=== PATIENT | female | born 1960 | race Caucasian/White ===

== ENCOUNTER 2023-08-24 06:57 | Inpatient (IN) | payer SELFPAY ==
[~2023-08-24] VITALS: Ht 172.7 cm; Wt 98.0 kg
[2023-08-24] MEDS ORDERED: adenosine 3mg/ml 2ml vial IV ONE ×2 (07:20)
[2023-08-24 07:44] LABS: BASOPHILS # (AUTO) 0.1 X10'3 (0-0.2); BASOPHILS % (AUTO) 0.9 % (0-1); EOSINOPHILS # (AUTO) 0.2 X10'3 (0-0.9); EOSINOPHILS % (AUTO) 2.1 % (0-6); HEMATOCRIT 41.4 % (35.0-45.0); HEMOGLOBIN 13.3 g/dl (12.0-16.0); LYMPHOCYTES # (AUTO) 2.1 X10'3 (1.1-4.8); LYMPHOCYTES % (AUTO) 18.6 % (21-51); MEAN CORPUSCULAR HEMOGLOBIN 28.6 PG (27.0-31.0); MEAN CORPUSCULAR HGB CONC 32.3 g/dL (33.0-36.5); MEAN CORPUSCULAR VOLUME 88.6 FL (78-98); MEAN PLATELET VOLUME 9.2 FL (7.4-10.4); MONOCYTES # (AUTO) 0.9 X10'3 (0-0.9); MONOCYTES % (AUTO) 7.8 % (2-12); NEUTROPHILS # (AUTO) 8.1 X10'3 (1.8-7.7); NEUTROPHILS % (AUTO) 70.6 % (42-75); PLATELET COUNT 370 X10'3 (140-440); RED BLOOD COUNT 4.67 X10'6 (4.20-5.60); RED CELL DISTRIBUTION WIDTH 15.3 % (11.5-14.5); WHITE BLOOD COUNT 11.5 X10'3 (4.5-11.0)
[2023-08-24 07:58] LABS: ALANINE AMINOTRANSFERASE 30 U/L (12-78); ALBUMIN 3.2 G/DL (3.4-5.0); ALBUMIN/GLOBULIN RATIO 0.9 (1.1-1.5); ALKALINE PHOSPHATASE 80 IU/L (46-116); ANION GAP 14 (8-16); ASPARTATE AMINO TRANSFERASE 16 U/L (10-37); BILIRUBIN,TOTAL 0.5 MG/DL (0.1-1.0); BLOOD UREA NITROGEN 16 MG/DL (7-18); BUN/CREATININE RATIO 11.9 (10.0-20.0); CALCIUM 9.3 MG/DL (8.5-10.1); CHLORIDE 107 MMOL/L (99-107); CREATININE 1.34 MG/DL (0.40-0.90); POTASSIUM 3.4 MMOL/L (3.5-5.1); SODIUM 144 MMOL/L (135-145); TOTAL CARBON DIOXIDE 23.3 MMOL/L (24-32); TOTAL PROTEIN 6.9 G/DL (6.4-8.2); eCRCL 44 ML/MIN; eGFR 40 ML/MIN
[2023-08-24 08:06] LABS: MAGNESIUM 1.7 MG/DL (1.5-2.4); PRO BRAIN NATRIURETIC PEPTIDE 582 PG/ML (0-125)
[2023-08-24] MEDS ORDERED: normal saline 1000ml 1,000 ML IV ONE (08:10)
[2023-08-24] MEDS ORDERED: ondansetron/PF 4mg/2ml inj IV ONE ×2 (08:10→09:45)
[2023-08-24] MEDS ORDERED: famotidine/PF 10 mg/ml inj IV ONE (08:10)
[2023-08-24 09:02] LABS: FREE T4 (FREE THYROXINE) 1.35 NG/DL (0.73-1.40); THYROID STIMULATING HORMONE 3.96 ulU/ml (0.34-4.50)
[2023-08-24 09:06] LABS: GLUCOSE 97 MG/DL (70-104)
[2023-08-24] MEDS ORDERED: magnesium Cl slow-release 64mg tablet PO PRN (13:25)
[2023-08-24] MEDS ORDERED: bisacodyl 10mg suppository rectal RC PRN (13:25)
[2023-08-24] MEDS ORDERED: magnesium 2GM in 50ml NS 50 ML IV PRN (13:25)
[2023-08-24] MEDS ORDERED: mag hydrox/Alum hydrox/simeth 30ml oral suspension PO PRN (13:25)
[2023-08-24] MEDS ORDERED: heparin 10,000 units/1 ML INJ IV PRN (13:25)
[2023-08-24] MEDS ORDERED: acetaminophen 325mg tablet PO PRN ×2 (13:25)
[2023-08-24] MEDS ORDERED: potassium Cl 20 mEq SR tablet PO PRN (13:25)
[2023-08-24] MEDS ORDERED: heparin 10,000 units/1 ML INJ IV ONE (13:25)
[2023-08-24] MEDS ORDERED: heparin 25,000 UNIT/250ml bag 250 ML IV PRN (13:25)
[2023-08-24] MEDS ORDERED: PERFLUTREN PROTEIN-A MICROSPHR (Optison) 0.22 MG/ML 3ML VIAL IV ONE (13:25)
[2023-08-24] MEDS ORDERED: magnesium 4gm in 100ml NS 100 ML IV PRN (13:25)
[2023-08-24] MEDS ORDERED: diphenhydrAMINE 25mg capsule PO PRN (13:25)
[2023-08-24] MEDS ORDERED: ondansetron/PF 4mg/2ml inj IV PRN (13:25)
[2023-08-24] MEDS ORDERED: magnesium hydroxide 30ml (MOM) UD suspension PO PRN (13:25)
[2023-08-24] MEDS ORDERED: acetaminophen 650mg rectal suppository RC PRN (13:25)
[2023-08-24] MEDS ORDERED: potassium Cl 40MEQ/1/2NS 520ml 520 ML IV PRN (13:25)
[2023-08-24 13:47] LABS: BASOPHILS # (AUTO) 0.1 X10'3 (0-0.2); BASOPHILS % (AUTO) 0.6 % (0-1); EOSINOPHILS # (AUTO) 0.1 X10'3 (0-0.9); EOSINOPHILS % (AUTO) 0.6 % (0-6); HEMATOCRIT 40.7 % (35.0-45.0); HEMOGLOBIN 13.4 g/dl (12.0-16.0); LYMPHOCYTES % (AUTO) 18.6 % (21-51); MEAN CORPUSCULAR HEMOGLOBIN 29.1 PG (27.0-31.0); MEAN CORPUSCULAR HGB CONC 32.9 g/dL (33.0-36.5); MEAN CORPUSCULAR VOLUME 88.5 FL (78-98); MEAN PLATELET VOLUME 9.1 FL (7.4-10.4); MONOCYTES % (AUTO) 9.5 % (2-12); NEUTROPHILS # (AUTO) 7.6 X10'3 (1.8-7.7); NEUTROPHILS % (AUTO) 70.7 % (42-75); PLATELET COUNT 351 X10'3 (140-440); RED CELL DISTRIBUTION WIDTH 15.8 % (11.5-14.5); WHITE BLOOD COUNT 10.8 X10'3 (4.5-11.0)
[2023-08-24 14:00] LABS: APTT 29 SECONDS (22-32); PROTHROMBIN TIME 10.8 SECONDS (9.0-12.0)
[2023-08-24] MEDS: normal saline 1000ml 1,000 ML IV SCH ×2 (15:45→23:25)
[2023-08-24 17:00] VITALS: BP 136/68; PULSE 66; RESP 14; TEMP 98.4; O2SAT 96
[2023-08-24 17:27] LABS: BILIRUBIN,URINE SMALL (Neg); CLARITY,URINE SLIGHTLY CLOUDY (Clear); COLOR,URINE YELLOW (Yellow); GLUCOSE, URINE NEGATIVE (Neg); KETONES,URINE 40 mg/dl (Neg); LEUKOCYTE ESTERASE ,URINE NEGATIVE (Neg); NITRITES, URINE NEGATIVE (Neg); OCCULT BLOOD,URINE NEGATIVE (Neg); PROTEIN,URINE NEGATIVE (Neg); UROBILINOGEN,URINE 0.2 E.U/dL (0.2-1.0)
[2023-08-24 17:31] LABS: UA COLLECTION TYPE NON-SPECIFIED
[2023-08-24 17:43] LABS: URINE AMPHETAMINE SCREEN POSITIVE (Neg); URINE BARBITUATE SCREEN NEGATIVE (Neg); URINE BENZODIAZEPINES SCREEN NEGATIVE (Neg); URINE CANNABINOID SCREEN POSITIVE (Neg); URINE COCAINE SCREEN NEGATIVE (Neg); URINE METHADONE SCREEN NEGATIVE (Neg); URINE OPIATE SCREEN NEGATIVE (Neg); URINE PHENCYCLIDINE SCREEN NEGATIVE (Neg)
[2023-08-24 18:00] VITALS: BP 114/52; PULSE 64; RESP 16; TEMP 98.4; O2SAT 97
[2023-08-24 18:41] LABS: MUCUS STRANDS MANY /LPF (Neg); SQUAMOUS EPITHELIAL CELL,UR MANY /LPF (FEW)
[2023-08-24 18:44] LABS: BACTERIA,URINE 3+ /HPF (Neg); WBC,URINE 0-4 /HPF (0-4)
[2023-08-24 18:45] LABS: FINE GRANULAR CAST 0-3 /LPF (NEGATIVE); HYALINE CASTS 0-3 /LPF (NEGATIVE)
[2023-08-24 18:46] LABS: TRANSITIONAL EPI CELLS,URINE FEW /HPF
[2023-08-24 18:50] LABS: RENAL CELLS, URINE FEW /HPF
[2023-08-24] MEDS: potassium Cl 20 mEq SR tablet PO PRN (19:13)
[2023-08-24] MEDS: docusate sod 100mg capsule PO SCH (19:14)
[2023-08-24] MEDS: K and/or MAG REPLACEMENT MC SCH (19:18)
[2023-08-24 20:00] VITALS: RESP 18; O2SAT 97
[2023-08-24] MEDS: aspirin 81mg, enteric-coated 1 TAB TABLET.DR PO SCH (20:02)
[2023-08-24 22:00] VITALS: BP 132/41; PULSE 71; RESP 20; TEMP 97.9; O2SAT 97
[2023-08-25] VITALS (8 sets, daily range): BP systolic 115–128; BP diastolic 46–74; PULSE 58–72; RESP 13–20; TEMP 97.3–98.6; O2SAT 96–98
[2023-08-25] MEDS ORDERED: busPIRone 5mg tablet PO SCH (00:07)
[2023-08-25] MEDS ORDERED: ziprasidone 20mg capsule PO SCH (00:08)
[2023-08-25] MEDS: potassium Cl 20 mEq SR tablet PO PRN ×2 (01:28→08:58)
[2023-08-25] MEDS: sertraline 25mg tablet PO SCH ×2 (01:28→08:59)
[2023-08-25 03:27] LABS: BASOPHILS # (AUTO) 0.1 X10'3 (0-0.2); BASOPHILS % (AUTO) 0.6 % (0-1); EOSINOPHILS # (AUTO) 0.2 X10'3 (0-0.9); EOSINOPHILS % (AUTO) 1.8 % (0-6); HEMATOCRIT 38.4 % (35.0-45.0); HEMOGLOBIN 12.8 g/dl (12.0-16.0); LYMPHOCYTES # (AUTO) 2.5 X10'3 (1.1-4.8); LYMPHOCYTES % (AUTO) 26.8 % (21-51); MEAN CORPUSCULAR HEMOGLOBIN 29.1 PG (27.0-31.0); MEAN CORPUSCULAR HGB CONC 33.3 g/dL (33.0-36.5); MEAN CORPUSCULAR VOLUME 87.5 FL (78-98); MEAN PLATELET VOLUME 9.6 FL (7.4-10.4); MONOCYTES # (AUTO) 0.7 X10'3 (0-0.9); MONOCYTES % (AUTO) 7.3 % (2-12); NEUTROPHILS % (AUTO) 63.5 % (42-75); PLATELET COUNT 280 X10'3 (140-440); RED BLOOD COUNT 4.38 X10'6 (4.20-5.60); RED CELL DISTRIBUTION WIDTH 15.2 % (11.5-14.5); WHITE BLOOD COUNT 9.5 X10'3 (4.5-11.0)
[2023-08-25 03:36] LABS: APTT 38 SECONDS (22-32)
[2023-08-25 03:40] LABS: ALANINE AMINOTRANSFERASE 24 U/L (12-78); ALBUMIN 2.9 G/DL (3.4-5.0); ALBUMIN/GLOBULIN RATIO 0.7 (1.1-1.5); ALKALINE PHOSPHATASE 74 IU/L (46-116); ANION GAP 10 (8-16); ASPARTATE AMINO TRANSFERASE 19 U/L (10-37); BILIRUBIN,TOTAL 0.6 MG/DL (0.1-1.0); BLOOD UREA NITROGEN 7 MG/DL (7-18); BUN/CREATININE RATIO 9.1 (10.0-20.0); CALCIUM 8.7 MG/DL (8.5-10.1); CHLORIDE 102 MMOL/L (99-107); CHOL/HDL RATIO 2.7 (0.00-4.99); CHOLESTEROL 158 MG/DL (0-200); CREATININE 0.77 MG/DL (0.40-0.90); GLUCOSE 95 MG/DL (70-104); HDL CHOLESTEROL 59 MG/DL (35-60); LDL CHOLESTEROL 76 MG/DL (50-100); MAGNESIUM 1.6 MG/DL (1.5-2.4); PHOSPHORUS 3.1 MG/DL (2.3-4.5); POTASSIUM 3.2 MMOL/L (3.5-5.1); SODIUM 139 MMOL/L (135-145); TOTAL CARBON DIOXIDE 26.6 MMOL/L (24-32); TRIGLYCERIDES 92 MG/DL (20-135); eCRCL 77 ML/MIN; eGFR 76 ML/MIN
[2023-08-25] MEDS: K and/or MAG REPLACEMENT MC SCH ×2 (08:00→20:00)
[2023-08-25] MEDS: docusate sod 100mg capsule PO SCH ×2 (08:00→20:41)
[2023-08-25] MEDS: metoprolol succinate 25mg (24-HOUR) SR. Tablet PO SCH (08:58)
[2023-08-25] MEDS: aspirin 81mg, enteric-coated 1 TAB TABLET.DR PO SCH (08:58)
[2023-08-25] MEDS: busPIRone 5mg tablet PO SCH ×3 (08:59→21:31)
[2023-08-25] MEDS: ziprasidone 20mg capsule PO SCH ×2 (08:59→20:49)
[2023-08-25] MEDS: normal saline 1000ml 1,000 ML IV SCH ×2 (09:25→19:25)
[2023-08-26 02:00] VITALS: BP 128/39; PULSE 63; RESP 18; TEMP 97.6; O2SAT 97
[2023-08-26] MEDS: normal saline 1000ml 1,000 ML IV SCH (02:51)
[2023-08-26 06:00] VITALS: BP 127/64; PULSE 57; RESP 19; TEMP 97.8; O2SAT 98
[2023-08-26 07:22] LABS: BASOPHILS # (AUTO) 0.1 X10'3 (0-0.2); BASOPHILS % (AUTO) 1.2 % (0-1); EOSINOPHILS # (AUTO) 0.2 X10'3 (0-0.9); EOSINOPHILS % (AUTO) 3.3 % (0-6); HEMATOCRIT 40.3 % (35.0-45.0); HEMOGLOBIN 13.5 g/dl (12.0-16.0); LYMPHOCYTES # (AUTO) 2.2 X10'3 (1.1-4.8); LYMPHOCYTES % (AUTO) 32.9 % (21-51); MEAN CORPUSCULAR HEMOGLOBIN 29.4 PG (27.0-31.0); MEAN CORPUSCULAR HGB CONC 33.4 g/dL (33.0-36.5); MEAN PLATELET VOLUME 9.8 FL (7.4-10.4); MONOCYTES # (AUTO) 0.5 X10'3 (0-0.9); MONOCYTES % (AUTO) 7.5 % (2-12); NEUTROPHILS # (AUTO) 3.6 X10'3 (1.8-7.7); NEUTROPHILS % (AUTO) 55.1 % (42-75); PLATELET COUNT 302 X10'3 (140-440); RED BLOOD COUNT 4.58 X10'6 (4.20-5.60); RED CELL DISTRIBUTION WIDTH 15.3 % (11.5-14.5); WHITE BLOOD COUNT 6.6 X10'3 (4.5-11.0)
[2023-08-26 07:31] LABS: ALANINE AMINOTRANSFERASE 22 U/L (12-78); ALBUMIN/GLOBULIN RATIO 0.7 (1.1-1.5); ALKALINE PHOSPHATASE 78 IU/L (46-116); ANION GAP 5 (8-16); ASPARTATE AMINO TRANSFERASE 16 U/L (10-37); BILIRUBIN,TOTAL 0.7 MG/DL (0.1-1.0); BLOOD UREA NITROGEN 6 MG/DL (7-18); BUN/CREATININE RATIO 7.2 (10.0-20.0); CALCIUM 8.9 MG/DL (8.5-10.1); CHLORIDE 105 MMOL/L (99-107); CREATININE 0.83 MG/DL (0.40-0.90); GLUCOSE 123 MG/DL (70-104); MAGNESIUM 1.8 MG/DL (1.5-2.4); PHOSPHORUS 2.5 MG/DL (2.3-4.5); POTASSIUM 4.2 MMOL/L (3.5-5.1); SODIUM 138 MMOL/L (135-145); TOTAL CARBON DIOXIDE 27.9 MMOL/L (24-32); TOTAL PROTEIN 7.5 G/DL (6.4-8.2); eCRCL 72 ML/MIN; eGFR 70 ML/MIN
[2023-08-26 08:00] VITALS: RESP 19; O2SAT 98
[2023-08-26] MEDS: docusate sod 100mg capsule PO SCH (08:00)
[2023-08-26] MEDS: metoprolol succinate 25mg (24-HOUR) SR. Tablet PO SCH (08:00)
[2023-08-26] MEDS: K and/or MAG REPLACEMENT MC SCH (08:00)
[2023-08-26] MEDS: sertraline 25mg tablet PO SCH (08:59)
[2023-08-26] MEDS: ziprasidone 20mg capsule PO SCH (09:00)
[2023-08-26] MEDS: busPIRone 5mg tablet PO SCH (09:00)
[2023-08-26] MEDS: aspirin 81mg, enteric-coated 1 TAB TABLET.DR PO SCH (09:00)
[2023-08-26] MEDS ORDERED: ondansetron 4mg rapidly disintigrating tab PO PRN (11:35)
== END 2023-08-26 13:45 | disposition left against medical advice (07) | DRG 281 ==
LOC: ER 06:59 → ED HOLD 13:29 → PCU 3S 16:55
PROVIDERS: ADMIT Family Medicine; ATTEND Family Medicine
DX: I47.10 Supraventricular tachycardia, unspecified (principal); I21.A1 Myocardial infarction type 2; N17.9 Acute kidney failure, unspecified; Z59.00 Homelessness unspecified; Z53.21 Procedure and treatment not carried out due to patient leaving prior to being seen by health care provider; F31.9 Bipolar disorder, unspecified; F41.9 Anxiety disorder, unspecified; F17.200 Nicotine dependence, unspecified, uncomplicated; E87.6 Hypokalemia; Z90.49 Acquired absence of other specified parts of digestive tract
CPT/HCPCS: 36415; 71045; 80053; 80061; 80305; 81001; 83036; 83735; 83880; 84100; 84439; 84443; 84484; 85025; 85610; 85730; 87081; 93005; 93306; 97116; 97161; 97530; 99285; G0378; J0153; J1644; J2405; J3490; J7030